=== PATIENT | male | born 1955 | race Caucasian/White ===

== ENCOUNTER 2017-12-30 00:17 | Inpatient (IN) | payer MEDICARE ==
[~2017-12-30] VITALS: Ht 177.8 cm; Wt 90.7 kg
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
--- NOTE | ~2017-12-30 | PR ---
[place], [place] PROGRESS NOTE NAME: HARLEEN JOYNER UNIT #: [id number] ROOM: 310 DOCTOR: KP CANDELARIA MD BIRTHDATE: [birth year] DOS: 01/07/2018 CHIEF COMPLAINT: "Hey, do I get to go home soon?" SUMMARY OF THE VISIT: The patient was interviewed as he reclined in a Debra chair attending group activities. He was bright and pleasant upon approach. He has been trending towards improvement. Nurses note, however, he has episodic spasm-like reactions to his upper extremity and he will jerk wildly from time to time. I did not witness any of this during the period of time that I engaged him in conversation. MENTAL STATUS: He is alert and oriented with time gaps. Mood does seem to be trending towards euthymia. Affect is more appropriate. There is no caitlyn, hypomania or gross psychosis different than his persistent complaints of auditory hallucinations. These per his report seem to be lessening. PLAN: I will discontinue lithium as there could be some neurotoxic side effects of the lithium mixed with the antipsychotics. I will also stop the Vraylar so he is not on 2 antipsychotics any longer and discontinue Cogentin in lieu of Artane 2 mg 3 times a day. I will add vitamin E 400 International Units in the a.m. to try to reverse any potential tardive dyskinesia and check a serum ammonia level, engage in individual and avila milieu activity, returning then to the least restrictive environment when stable. KP CANDELARIA MD CM:PNTRANS [id number] KP CANDELARIA MD 01/07/18 1008 interface
--- NOTE | ~2017-12-30 | PR ---
[place], [place] PROGRESS NOTE NAME: HARLEEN JOYNER UNIT #: [id number] ROOM: 310 DOCTOR: KP CANDELARIA MD BIRTHDATE: [birth year] DOS: 01/05/2018 CHIEF COMPLAINT: "Morning." SUMMARY OF THE VISIT: The patient was interviewed as he sat in a Debra chair. He had very slurred and mumbling speech. He seemed somewhat somnolent. It is unclear which of the medications is potentially doing this to him. Otherwise, he notes that the auditory hallucinations seem to be trending toward improvement. MENTAL STATUS: He is alert and oriented with some time gaps. Mood does seem to be more euthymic. Affect appropriate. He does endorse positive hallucinations, but reports that they are less frequent and intense. PLAN: I will discontinue his trazodone in case this is causing excess somnolence and lower the Invega back down to 6 mg a day. Continue to support and monitor. KP CANDELARIA MD CM:PNTRANS [id number] [id number] KP CANDELARIA MD 01/05/18 1109 interface
--- NOTE | ~2017-12-30 | PR ---
[place], [place] PROGRESS NOTE NAME: HARLEEN JOYNER UNIT #: [id number] ROOM: 310 DOCTOR: KP CANDELARIA MD BIRTHDATE: [birth year] DOS: 01/08/2018 CHIEF COMPLAINT: "It's over there, see." SUMMARY OF THE VISIT: The patient was interviewed as he sat in his Debra chair. They attempt to give him breakfast, but he has repeatedly told him that he was not hungry. He had a few sips of coffee and then that was it. He does seem to be rather somnolent and also does appear to be experiencing visual hallucinations. MENTAL STATUS: He is alert and oriented to person, doubtful to place, certainly not time. Mood does still seem to be rather labile. He is rather disjointed however, very confused and fragmented in his thinking. It is hard for him to get out of full sentence without derailing mid sentence. Short term memory is very poor. PLAN: I will go ahead and discontinue the Depakote as I try to simplify his drug regimen to see if this will help him become more alert and interactive. I will maintain Invega at this point. Hydroxyzine and the Artane continue to engage in individual and avila milieu activity, returning to the least restrictive environment when psychiatrically stable. KP CANDELARIA MD CM:PNTRANS 0904 1007 KP CANDELARIA MD 01/08/18 1006 interface
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
--- NOTE | ~2017-12-30 | PR ---
[place], [place] PROGRESS NOTE NAME: HARLEEN JOYNER UNIT #: [id number] ROOM: 310 DOCTOR: KP CANDELARIA MD BIRTHDATE: [birth year] DOS: 01/06/2018 CHIEF COMPLAINT: "Morning." SUMMARY OF THE VISIT: The patient was interviewed as he was sitting in a Debra chair watching television and attending to activities. He stopped and engaged readily in conversation. He seems much more awake and conversant than he had been in the last 2 days. He reports no problems, stating he slept well and ate well. He continues to still experience ongoing auditory hallucinations, however. MENTAL STATUS: He remains alert and oriented to person, place, and approximate to time. Mood does seem to be trending towards euthymia, but he still endorses positive auditory hallucinations and states that he feels that he will always have them. He is somewhat delusional as well. Short-term memory, intermediate memory and long-term memory for the most part are intact. PLAN: I will renew his Ativan p.r.n. in case he requires any intervention. He does have some bilateral hand tremors and I will start Cogentin 1 mg twice daily to see if this can impact positively on relieving the tremors. We will engage in individual and avila milieu activity, returning to the least restrictive environment when psychiatrically stable. KP CANDELARIA MD CM:PNTRANS 1021 [id number] KP CANDELARIA MD 01/06/18 1224 interface
--- NOTE | ~2017-12-30 | PR ---
[place], [place] PROGRESS NOTE [id number] UNIT #: [id number] ROOM: 310 DOCTOR: KP CANDELARIA MD BIRTHDATE: [birth year] DOS: 01/01/2018 CHIEF COMPLAINT: "I am eating breakfast, it is good, thanks." SUMMARY OF THE VISIT: The patient was eating in the group therapy room. He was eating by himself. He stopped and engaged readily in conversation, reporting that he slept well and is feeling slightly better than upon admission. He still hears voices, but then later stated that it was not voices he hears but rather his own conscious and thoughts in his head. He is tolerating the current medication regimen well. MENTAL STATUS: He is alert and oriented to person, place and very approximate to time. Mood does seem to be strongly trending towards euthymia. Affect is more appropriate. There is no caitlyn or hypomania. There is still the presence of auditory hallucinations. Memory is intact. PLAN: [place] level was therapeutic at 0.74, so I will maintain the current dose of lithium. I will check a valproic acid level in the morning. I will increase his Vraylar from 1.5 mg at bedtime to 3 mg at bedtime to target the psychotic symptomatology. We will continue to engage him in individual and avila milieu activity, returning to the least restrictive environment when stable. KP CANDELARIA MD CM:PNTRANS 4 KP CANDELARIA MD 01/01/1835 interface
--- NOTE | ~2017-12-30 | PR ---
[place], [place] [facility]ESS [id number] UNIT #: [id number] ROOM: 310 DOCTOR: MAT CODY MD BIRTHDATE: [birth year] DOS: 01/14/2018 PSYCHIATRIC PROGRESS NOTE SUBJECTIVE: The patient was seen and spoke with the staff. Per nursing staff, the patient is doing well, compliant with his medication. No behavior problems or issues. The patient was pleasant and cooperative. He reports doing good. Denied any problems or issues. Denied any depressed mood, hopelessness and helplessness. Denied any other neurovegetative signs and symptoms of depression. He reports good sleep and appetite. He denied any side effect from the medication. MENTAL STATUS EXAMINATION: Pleasant, cooperative, described his mood as "good." Affect, mood congruent. He denied auditory or visual hallucination. No delusion or paranoia noted. He denied suicidal ideation, intent or plan. He also denied homicidal ideation, intent or plan. PLAN: 1. Continue current medications and care. 2. Continue redirection. 3. Encourage activities in groups. 4. Final medication management and discharge planning by the regular team. MAT CODY MD CM:PNTRANS 57 [phone] MAT CODY MD 01/14/182033 interface
--- NOTE | ~2017-12-30 | PR ---
[place], [place] PROGRESS NOTE [id number] UNIT #: [id number] ROOM: 310 DOCTOR: KP CANDELARIA MD BIRTHDATE: [birth year] DOS: 01/03/2018 CHIEF COMPLAINT: "I still hear those voices. They are constantly in my head." SUMMARY OF THE VISIT: The patient was interviewed as he was resting in bed. He continues to report auditory hallucinations. He was vague though and avoidant. He did tell the nurses, however, that he is still hearing command hallucinations and that they may have dissipated just minimally. MENTAL STATUS: He is alert and oriented. Mood does seem to still be depressed and he is preoccupied with internal stimuli. He is tolerating the current medication regimen well and I see no sedation, somnolence or extrapyramidal symptoms. PLAN: I will go ahead and maximize out his Vraylar to 6 mg at bedtime. I will start him on Invega 6 mg p.o. now and every a.m. May end up utilizing an Invega Sustenna injection monthly as opposed to the Prolixin that he was receiving once a week. KP CANDELARIA MD CM:PNTRANS [id number] KP CANDELARIA MD 01/03/18 1125 interface
--- NOTE | ~2017-12-30 | PR ---
[place], [place] PROGRESS [id number] UN[facility] #: [id number] ROOM: 310 DOCTOR: MAT CODY MD BIRTHDATE: [birth year] DOS: 01/13/2018 SUBJECTIVE: The patient seen and spoke with the staff. Per staff, the patient is pleasant and cooperative. Mood is stable, slept well. No behavior problems or issues. The patient was pleasant and cooperative. He reports doing okay. He denied any problem with his sleep or appetite. He is taking his medication regularly and did not have any side effect. He did not express any problems or concerns. MENTAL STATUS EXAMINATION: Pleasant, cooperative. Described his mood as "okay." Affect, mood congruent. He denied auditory or visual hallucination. No delusion or paranoia noted. He denied suicidal ideation, intent or plan. He also denied any homicidal ideation, intent or plan. PLAN: 1. Continue current medications and care. 2. Continue redirection. 3. Encourage activities and groups. 4. Final medication management and discharge plan by the regular team. MAT CODY MD CM:PNTRANS [id number] MAT CODY MD 01/14/18 2030 interface
--- NOTE | ~2017-12-30 | PR ---
[place], [place] PROGRESS NOTE NAME: HARLEEN JOYNER UNIT #: [id number] ROOM: 310 DOCTOR: KP CANDELARIA MD BIRTHDATE: [birth year] DOS: 01/04/2018 CHIEF COMPLAINT: "I think I'm doing okay." SUMMARY OF THE VISIT: The patient was interviewed as he was resting quietly in bed. He engaged readily in conversation, reporting that he slept well. He still is telling the nurses though consistently that the voices are still present and that they found him throughout the day, making life almost unbearable. They also interfere with his sleep from time to time. He does report no side effects from the medications themselves. MENTAL STATUS: He is alert and oriented with some time gaps. Mood does seem to be still depressed with anxious overtones and he endorses positive auditory hallucinations. Memory for the most part is intact. PLAN: I will increase the Invega from 6 to 9 mg in the morning. We will increase the trazodone from 100 to 150 at night to aid sleep. We will continue to engage in individual and avila milieu activity, returning to the least restrictive environment when psychiatrically stable. KP CANDELARIA MD CM:PNTRANS 1058 1143 KP CANDELARIA MD 01/04/18 1142 interface
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
[2017-12-30] MEDS ORDERED: LIPITOR10 MG PO (00:42)
[2017-12-30] MEDS ORDERED: AVODART0.5 M1 PO (00:43)
[2017-12-30] MEDS ORDERED: FLUPHENAZI25 MG/1 ML IJ (00:48)
[2017-12-30] MEDS ORDERED: NATURE'S BLEND F1 MG PO (00:48)
[2017-12-30] MEDS ORDERED: ESKALITH,LITHI300 MG PO (00:49)
[2017-12-30] MEDS ORDERED: METHYLPHENIDATE54 M3 PO (00:50)
[2017-12-30] MEDS ORDERED: TAMSULOSIN HCL0.4 MG PO (00:50)
[2017-12-30 19:00] VITALS: BP 144/75
[2017-12-31 06:32] LABS: BASO % 0.4 % (0.0-1.0); EOS # 0.5 10*3/uL (0.0-0.4); EOS % 6.5 % (1.0-4.0); HEMATOCRIT 36.2 % (42.0-52.0); HEMOGLOBIN 11.3 g/dl (14.0-18.0); LYMPH # 1.3 10*3/uL (1.3-4.4); LYMPH % 18.6 % (27.0-41.0); MEAN CELL VOLUME 88.5 fl (80.0-94.0); MEAN CORPUSCULAR HGB 27.6 pg (27.0-31.0); MEAN CORPUSCULAR HGB CONC 31.2 g/dl (33.0-37.0); MONO # 0.6 10*3/uL (0.1-1.0); MONO % 8.5 % (3.0-9.0); NEUT # 4.6 10*3/uL (2.3-7.9); NEUT % 65.9 % (47.0-73.0); PLATELET COUNT AUTOMATED 184 10*3/uL (130-400); RED BLOOD COUNT 4.09 10*6/uL (4.50-5.90); WHITE BLOOD COUNT 7.1 10*3/uL (4.8-10.8)
[2017-12-31 07:04] LABS: ALKALINE PHOSPHATASE 75 U/L (45-117); BUN 6 mg/dl (7-24); CHLORIDE 113 mmol/L (98-107); CHOLESTEROL 114 mg/dL (<200); HDL CHOLESTEROL 61 mg/dl (40-60); LDL CHOLESTEROL 33 mg/dL (9-159); POTASSIUM 3.8 mmol/L (3.5-5.1); SGOT/AST 13 IU/L (3-35); SGPT/ALT 18 U/L (12-78); SODIUM 147 mmol/L (136-145); TOTAL PROTEIN 6.4 gm/dL (6.4-8.2); TRIGLYCERIDES 102 mg/dl (<150); VLDL CHOLESTEROL 20 mg/dL (6-40)
[2017-12-31 07:12] LABS: THYROID STIM HORMONE (HS) 0.842 uIU/ml (0.358-4.75)
[2017-12-31 07:45] VITALS: BP 121/72
[2017-12-31 07:49] LABS: VITAMIN D, 25-HYDROXY 41.6 ng/mL (30-100)
[2017-12-31 14:49] LABS: BILIRUBIN NEGATIVE (NEGATIVE); BLOOD 3+ (NEGATIVE); CLARITY CLEAR (CLEAR); COLOR YELLOW (YELLOW); GLUCOSE NEGATIVE (NEGATIVE); KETONE NEGATIVE (NEGATIVE); LEUKO ESTERASE 3+ (NEGATIVE); NITRITE NEGATIVE (NEGATIVE); SPECIFIC GRAVITY <= 1.005 (1.005-1.030); UROBILINOGEN 0.2 E.U./dl (0.2-1.0)
[2017-12-31 14:59] LABS: BACTERIA 2+; RBC 21-30 rbc/hpf (0-2); WBC 51-100 wbc/hpf (0-5)
[2017-12-31 20:17] VITALS: BP 110/84
[2018-01-01 07:27] LABS: BASO % 0.3 % (0.0-1.0); EOS # 0.5 10*3/uL (0.0-0.4); EOS % 7.2 % (1.0-4.0); HEMATOCRIT 36.8 % (42.0-52.0); HEMOGLOBIN 11.2 g/dl (14.0-18.0); LYMPH # 1.9 10*3/uL (1.3-4.4); LYMPH % 27.1 % (27.0-41.0); MEAN CELL VOLUME 90.6 fl (80.0-94.0); MEAN CORPUSCULAR HGB 27.6 pg (27.0-31.0); MEAN CORPUSCULAR HGB CONC 30.4 g/dl (33.0-37.0); MEAN PLATELET VOLUME 9.5 fl (9.6-12.3); MONO # 0.5 10*3/uL (0.1-1.0); MONO % 7.8 % (3.0-9.0); NEUT # 3.9 10*3/uL (2.3-7.9); NEUT % 57.3 % (47.0-73.0); PLATELET COUNT AUTOMATED 180 10*3/uL (130-400); RED BLOOD COUNT 4.06 10*6/uL (4.50-5.90); WHITE BLOOD COUNT 6.8 10*3/uL (4.8-10.8)
[2018-01-01 07:32] VITALS: BP 126/68
[2018-01-01 07:46] LABS: BUN 7 mg/dl (7-24); CHLORIDE 112 mmol/L (98-107); CREATININE 1.28 mg/dL (0.70-1.30); POTASSIUM 3.5 mmol/L (3.5-5.1); SODIUM 146 mmol/L (136-145)
[2018-01-01 20:40] VITALS: BP 115/75
[2018-01-02 07:43] VITALS: BP 130/67
[2018-01-02 20:00] VITALS: BP 128/66
[2018-01-03 07:50] VITALS: BP 128/66
[2018-01-03 17:46] LABS: BILIRUBIN NEGATIVE (NEGATIVE); BLOOD 2+ (NEGATIVE); CLARITY CLEAR (CLEAR); COLOR YELLOW (YELLOW); GLUCOSE NEGATIVE (NEGATIVE); KETONE NEGATIVE (NEGATIVE); LEUKO ESTERASE 3+ (NEGATIVE); NITRITE NEGATIVE (NEGATIVE); PH 6.5 (5.0-9.0); SPECIFIC GRAVITY <= 1.005 (1.005-1.030); UROBILINOGEN 0.2 E.U./dl (0.2-1.0)
[2018-01-03 18:06] LABS: BACTERIA 1+; WBC 16-20 wbc/hpf (0-5)
[2018-01-03 21:18] VITALS: BP 105/56
[2018-01-04 07:48] VITALS: BP 117/65
[2018-01-04 20:00] VITALS: BP 118/62
[2018-01-05 07:34] VITALS: BP 106/78
[2018-01-05 19:29] VITALS: BP 108/74
[2018-01-06 08:14] VITALS: BP 111/83
[2018-01-06 20:00] VITALS: BP 122/71
[2018-01-07 07:42] VITALS: BP 115/66
[2018-01-07 19:45] VITALS: BP 139/80
[2018-01-08 07:51] VITALS: BP 123/71
[2018-01-08 20:14] VITALS: BP 116/67
[2018-01-09 07:52] VITALS: BP 143/76
[2018-01-10 07:29] VITALS: BP 128/60
[2018-01-10 19:51] VITALS: BP 122/62
[2018-01-11 07:49] VITALS: BP 119/68
[2018-01-11 19:05] VITALS: BP 128/72
[2018-01-12 08:18] VITALS: BP 112/58
[2018-01-12 20:20] VITALS: BP 115/68
[2018-01-13 07:57] VITALS: BP 123/69
[2018-01-13 20:00] VITALS: BP 128/70
[2018-01-14 08:41] VITALS: BP 102/67
[2018-01-14 20:00] VITALS: BP 127/52
[2018-01-15 07:30] VITALS: BP 126/60
[2018-01-15] MEDS ORDERED: VITAMIN E400 UNI3 PO (09:19)
[2018-01-15] MEDS ORDERED: FLUPHENAZI25 MG/1 ML IM (09:19)
[2018-01-15] MEDS ORDERED: TRIHEXYPHENIDYL2 M3 PO (09:19)
[2018-01-15] MEDS ORDERED: LATU40TA PO (09:19)
== END 2018-01-15 12:35 | disposition other institution (70) | DRG 885 ==
LOC: EDBD → 3N 00:17
PROVIDERS: Psychiatry & Neurology Psychiatry; Student in an Organized Health Care Education/Training Program
DX: F25.9 Schizoaffective disorder, unspecified (principal); E87.0 Hyperosmolality and hypernatremia; F23 Brief psychotic disorder; F31.9 Bipolar disorder, unspecified; E78.5 Hyperlipidemia, unspecified; N40.0 Benign prostatic hyperplasia without lower urinary tract symptoms; Z87.891 Personal history of nicotine dependence; Z80.1 Family history of malignant neoplasm of trachea, bronchus and lung; Z82.3 Family history of stroke; Z88.0 Allergy status to penicillin; Z79.899 Other long term (current) drug therapy